=== PATIENT | female | born 1995 ===

== ENCOUNTER 2023-01-11 09:49 | Outpatient (CLI) | payer OTHER | END 2023-01-11 11:25 | disposition home or self-care (01) | LOC: PRENATAL 09:49 | PROVIDERS: ATTEND Obstetrics & Gynecology Maternal & Fetal Medicine | DX: O35.9XX0 Maternal care for (suspected) fetal abnormality and damage, unspecified, not applicable or unspecified (principal); O35.3XX0 Maternal care for (suspected) damage to fetus from viral disease in mother, not applicable or unspecified; O99.280 Endocrine, nutritional and metabolic diseases complicating pregnancy, unspecified trimester; Z3A.20 20 weeks gestation of pregnancy ==

== ENCOUNTER 2023-03-21 20:42 | Outpatient (CLI) | payer OTHER ==
[~2023-03-21] VITALS: Ht 160 cm; Wt 71.2 kg
[2023-03-21] MEDS ORDERED: SYNTHROID112 MCG PO (20:58)
== END 2023-03-22 14:15 | disposition home or self-care (01) ==
LOC: OBS/DEL 20:42
PROVIDERS: ATTEND Student in an Organized Health Care Education/Training Program
DX: O46.8X3 Other antepartum hemorrhage, third trimester (principal); Z3A.30 30 weeks gestation of pregnancy

== ENCOUNTER 2023-04-05 09:22 | Outpatient (CLI) | payer OTHER ==
[~2023-04-05 09:22] MED LIST: SYNTHROID112 MCG PO
== END 2023-04-05 10:03 | disposition home or self-care (01) ==
LOC: PRENATAL 09:22
PROVIDERS: ATTEND Obstetrics & Gynecology Maternal & Fetal Medicine
DX: O26.849 Uterine size-date discrepancy, unspecified trimester (principal); O36.8199 Decreased fetal movements, unspecified trimester, other fetus; O99.280 Endocrine, nutritional and metabolic diseases complicating pregnancy, unspecified trimester; O26.859 Spotting complicating pregnancy, unspecified trimester; Z3A.32 32 weeks gestation of pregnancy

== ENCOUNTER 2023-05-10 17:43 | Outpatient (CLI) | payer OTHER | END 2023-05-10 18:17 | disposition home or self-care (01) | LOC: NST 17:43 | PROVIDERS: ATTEND Obstetrics & Gynecology | DX: Z34.83 Encounter for supervision of other normal pregnancy, third trimester (principal) ==

== ENCOUNTER 2023-05-25 18:23 | Inpatient (IN) | payer OTHER ==
[~2023-05-25] VITALS: Ht 160 cm; Wt 2.7 kg
[2023-05-25] MEDS ORDERED: PRENATAL TABLE1 EAC4 PO (18:49)
[2023-05-25 19:06] LABS: URINE APPEARANCE Clear; URINE BILIRRUBIN Negative (NEGATIVE); URINE BLOOD Small; URINE COLOR Yellow; URINE GLUCOSE Negative (NEGATIVE); URINE LEUKOCYTE Negative; URINE NITRATE Negative; URINE PROTEIN Trace (NEGATIVE)
[2023-05-25 19:09] LABS: URINE BACTERIA 2284.3 uL (0.0-1933); URINE EPITHELIAL CELLS 16.2 uL (0.0-38.8); URINE RBC 9.3 uL (0.0-20.8); URINE WBC 25.3 uL (0.0-23.2)
[2023-05-25 19:14] LABS: HEMATOCRIT 31.9 % (36.0-45.00); HEMOGLOBIN 10.6 g/dL (12.0-15.00); MEAN CELL VOLUME 80.3 fL (80.00-100.00); MEAN CORPUSCULAR HEMOGLOBIN 26.6 pg (27.00-32.0); MEAN CORPUSCULAR HGB CONC 33.1 g/dl (32.0-36.0); PLATELET COUNT 171 K/uL (150-450); RED BLOOD COUNT 3.97 M/uL (4.00-6.00); RED CELL DISTRIBUTION WIDTH 17.4 % (11.5-14.5)
[2023-05-25 19:28] LABS: INR 0.96; PARTIAL THROMBOPLASTIN TIME 25.5 SECONDS (22.0-34.0); PROTHROMBIN TIME 10.1 SECONDS (9.0-11.5)
[2023-05-25 19:36] LABS: URINE CRYSTALS FEW /HPF; URINE MUCUS MODERATE
[2023-05-25 20:31] LABS: ALBUMIN 2.7 gm/dL (3.4-5.0); BILIRUBIN TOTAL 0.36 mg/dL (0.3-1.2); CALCIUM 8.9 mg/dL (8.5-10.1); CREATININE SERUM 0.59 mg/dL (0.55-1.02); GFR 123.21; GLOBULINA 3.2 G/DL (2.4-3.5); POTASSIUM 3.76 mEq/L (3.5-5.1); TOTAL PROTEIN 5.9 gm/dL (6.4-8.2)
[2023-05-26 23:26] LABS: HEMATOCRIT 34.6 % (36.0-45.00); MEAN CELL VOLUME 81.3 fL (80.00-100.00); MEAN CORPUSCULAR HGB CONC 31.9 g/dl (32.0-36.0); PLATELET COUNT 155 K/uL (150-450); RED BLOOD COUNT 4.25 M/uL (4.00-6.00)
[2023-05-26 23:28] LABS: MEAN CORPUSCULAR HEMOGLOBIN 25.8 pg (27.00-32.0)
[2023-05-29] MEDS ORDERED: PERCOCET 5-3251 EACH PO (13:22)
[2023-05-29] MEDS ORDERED: SIMETHICONE80 MG PO (13:22)
[2023-05-29] MEDS ORDERED: IBU800 MG PO (13:22)
[2023-05-29] MEDS ORDERED: COLACE100 MG PO (13:22)
== END 2023-05-29 13:30 | disposition home or self-care (01) | DRG 788 ==
LOC: LDR 18:23 → OB/GYN 18:23 → LDR 18:35 → OB/GYN 05-26 14:44
PROVIDERS: Obstetrics & Gynecology; ADMIT Obstetrics & Gynecology; ATTEND Obstetrics & Gynecology
PROC: 3E0P7VZ Introduction of Hormone into Female Reproductive, Via Natural or Artificial Opening (ICD-10-PCS; 2023-05-25)
PROC: 4A1HXCZ Monitoring of Products of Conception, Cardiac Rate, External Approach (ICD-10-PCS; 2023-05-25)
PROC: 3E033VJ Introduction of Other Hormone into Peripheral Vein, Percutaneous Approach (ICD-10-PCS; 2023-05-26)
PROC: 10D00Z1 Extraction of Products of Conception, Low, Open Approach (ICD-10-PCS; principal; 2023-05-26 15:00)
DX: O82 Encounter for cesarean delivery without indication (principal); Z3A.39 39 weeks gestation of pregnancy; Z37.0 Single live birth; Z20.822 Contact with and (suspected) exposure to COVID-19